=== PATIENT | male | born 1935 | race Caucasian/White ===

== ENCOUNTER 2021-03-04 08:36 | Inpatient (IN) | payer MEDICARE ==
[~2021-03-04] VITALS: Ht 172.7 cm; Wt 74.6 kg
[2021-03-04 08:43] VITALS: BP 160/86
[2021-03-04] MEDS ORDERED: CHILDREN'S ASPI81 M1 PO (08:56)
[2021-03-04] MEDS ORDERED: LIPITOR40 MG PO (08:56)
[2021-03-04] MEDS ORDERED: CALCIUM CARBON500 MG PO (08:57)
[2021-03-04] MEDS ORDERED: CEPHALEXIN250 MG PO (08:57)
[2021-03-04] MEDS ORDERED: B-125000 MC1 PO (08:58)
[2021-03-04] MEDS ORDERED: FUROSEMIDE 20 M20 MG PO (08:59)
[2021-03-04] MEDS ORDERED: NEURONTIN 300M300 M2 PO (08:59)
[2021-03-04] MEDS ORDERED: IMDUR 30 MG TAB30 M1 PO (09:00)
[2021-03-04] MEDS ORDERED: LORATIDINE 10 M10 M1 PO (09:00)
[2021-03-04] MEDS ORDERED: SUPER THERAVIT1 EACH PO (09:01)
[2021-03-04] MEDS ORDERED: NITROSTAT0.4 M1 (09:01)
[2021-03-04] MEDS ORDERED: KAPSPARGO SPRIN25 MG PO (09:01)
[2021-03-04] MEDS ORDERED: FLOMAX0.4 MG PO (09:02)
[2021-03-04] MEDS ORDERED: HYDROCODON-ACE1 EAC7 PO (09:02)
[2021-03-04] MEDS ORDERED: OMEPRAZOLE40 MG PO (09:02)
[2021-03-04] MEDS ORDERED: OXYBUTYNIN 5 MG5 M2 PO (09:02)
[2021-03-04] MEDS ORDERED: ATROVENT HFA14 GM INH (09:03)
[2021-03-04 09:20] LABS: ABSOLUTE BASOPHILS 0.1 thou/uL (0.0-0.2); ABSOLUTE EOSINOPHILS 0.1 thou/uL (0.0-0.7); ABSOLUTE LYMPHOCYTES 2.8 thou/uL (0.8-5.3); ABSOLUTE MONOCYTES 1.1 thou/uL (0.0-1.2); ABSOLUTE NEUTROPHILS 5.9 thou/uL (1.6-8.1); BASOPHILS 0.8 %; EOSINOPHILS 1.2 %; HEMATOCRIT 33.5 % (42.0-52.0); HEMOGLOBIN 11.1 gm/dL (14.0-18.0); LYMPHOCYTES 27.8 %; MCH 30.8 pg (26.0-34.0); MCHC 33.1 g/dL (28.0-37.0); MCV 92.9 fL (80.0-100.0); MPV 8.2 fl. (7.2-11.1); NUCLEATED RBCS 0 /100WBC; PLATELET COUNT* 289 thou/uL (150-400); POLYS 59.2 %; RBC 3.61 mil/uL (4.50-6.00); RDW-CV 14.9 % (10.5-14.5); WBC 9.9 thou/uL (4.0-11.0)
[2021-03-04 09:22] LABS: CALCIUM 9.7 mg/dL (8.5-10.1); CREATININE 2.2 mg/dL (0.6-1.3); POTASSIUM 3.9 mmol/L (3.5-5.1)
[2021-03-04 09:33] LABS: ALBUMIN 3.6 g/dL (3.4-5.0); DIRECT BILIRUBIN 0.2 mg/dL (<0.1-0.3); PHOSPHORUS* 2.6 mg/dL (2.5-4.9); TOTAL BILIRUBIN 0.8 mg/dL (<0.1-1.0); TOTAL PROTEIN 9.1 g/dL (6.4-8.2)
[2021-03-04 10:38] LABS: URINE BLOOD TRACE (Negative); URINE CLARITY CLEAR; URINE COLOR YELLOW; URINE GLUCOSE-RANDOM NEGATIVE (Negative); URINE KETONES NEGATIVE (Negative); URINE LEUKOCYTES NEGATIVE (Negative); URINE NITRITE NEGATIVE (Negative); URINE PROTEIN TRACE (Negative); URINE UROBILINOGEN 0.2 E.U./dl (0.2-1.0)
[2021-03-04 10:47] LABS: URINE BILIRUBIN 1+ (Negative)
[2021-03-04 10:51] LABS: ICTOTEST (BILI CONFIRMATORY) Negative (Negative)
[2021-03-04 17:00] VITALS: BP 149/84
[2021-03-04 18:00] VITALS: BP 149/84
[2021-03-04 19:45] VITALS: BP 118/72
[2021-03-05] VITALS (7 sets, daily range): BP systolic 107–132; BP diastolic 51–77
--- NOTE | 2021-03-05 04:22 | NUR ---
ASSUMED PT CARE AT APPROX. 1930. PT IS A/OX4. VSS. PT C/O PAIN IN BLLE D/T NEUROPATHY. PT REFUSED SCHEDULED GABAPENTIN D/T "IT CAUSES STOMACH UPSET." PT REQUESTED HYDROCODONE FOR PAIN. MEDICATION ADMINISTERED PRESCRIBED. PT REPORTED PARTIAL PAIN RELIEF. PT HAS DIVERTICULITIS AND CONSTIPATION. PT IS CONTINENT OF BOWEL AND BLADDER. PT RECEIVED MEDICATION ON THE DAY SHIFT TO HELP WITH CONSTIPATION. PT HAD 3 BM'S TONIGHT. PT USES CALL LIGHT TO NOTIFY STAFF BEFORE GETTING OUT OF BED. PT CALL LIGHT WITHIN REACH. HOURLY ROUNDS COMPLETE CHARTED. PT CURRENTLY RESTING IN BED. WILL CONT. TO MONITOR.
--- NOTE | 2021-03-05 07:15 | NUR ---
CHANGE OF SHIFT BEDSIDE REPORT GIVEN PATIENT SEEN AT BEDSIDE, IN BED RESTING ASSUMED PATIENT CARE
--- NOTE | 2021-03-05 09:32 | NUR ---
CM ASSESSMENT: PT A&O, INDEPENDENT WITH ADL'S, ACTIVE AND DRIVES. PT RESIDES AT HOME WITH SPOUSE. PT USES A CANE FOR MOBILITY. PT HAS 0 HX OF HH OR SNF. CM WILL REMAIN AVAILABLE TO ASSIST AND FOLLOW NEEDED.
--- NOTE | 2021-03-05 12:09 | EKG ---
[place] [address] ELECTROCARDIOGRAM REPORT Name: COOPER DURAN Room: [address] ADM IN M.R.#: [id number] Admission: 03/04/21 Attend Phys: Hernando Sharpe, Discharge: Date of : 39 Date of Service: 03/04/21 0846 Report #: [id number] THIS REPORT FOR: //name// [facility] ED Test Date: 2021-03-04 Test Time: 08:46:43 Pat Name: COOPER DURAN Department: Room: [facility] Gender: M Elevator Erector: FERNANDO : 1935 Requested By: Darrell Ron Order Number: [id number] MD: Martin Pena Measurements Intervals [place] Rate: 59 P: 42 MA: 182 QRS: -60 QRSD: 133 T: -26 QT: 454 QTc: 450 Interpretive Statements Sinus rhythm Nonspecific IVCD with LAD Nonspecific T abnormalities, inferior leads Baseline wander in lead(s) I,II,aVR No previous ECG available for comparison Electronically Signed On 03-05-2021 12:09:23 CDT by Martin Pena [email or web address] <ELECTRONICALLY SIGNED> By: Martin Pena MD, [facility] 03/05/21 1209 [id number] Martin Pena MD, [facility] /EPI
[2021-03-05 15:00] LABS: HEMATOCRIT 35.1 % (42.0-52.0); HEMOGLOBIN 11.4 gm/dL (14.0-18.0); MCH 30.5 pg (26.0-34.0); MCHC 32.6 g/dL (28.0-37.0); MCV 93.6 fL (80.0-100.0); MPV 8.2 fl. (7.2-11.1); RBC 3.75 mil/uL (4.50-6.00); WBC 10.3 thou/uL (4.0-11.0)
[2021-03-05 15:22] LABS: ALBUMIN 3.5 g/dL (3.4-5.0); CALCIUM 9.3 mg/dL (8.5-10.1); CREATININE 2.6 mg/dL (0.6-1.3); POTASSIUM 3.6 mmol/L (3.5-5.1); TOTAL BILIRUBIN 0.8 mg/dL (<0.1-1.0); TOTAL PROTEIN 8.7 g/dL (6.4-8.2)
[2021-03-06 04:35] VITALS: BP 111/64
--- NOTE | 2021-03-06 05:07 | NUR ---
ASSUMED PT CARE AT 1930. PT IS A/OX4. VSS. PT IS SR ON TELEMONITOR. PT HAS BEEN UP TO RR INTERMITTENTLY DURING THE NOC. PT USES CALL LIGHT. PT DENIES ABDOMINAL PAIN. PT REPORTED PAIN AND NEUROPATHY BLLE. MEDICATIONS ADMINISTERED PRESCRIBED. PT RESTED DURING THE NIGHT. HOURLY ROUNDS COMPLETE CHARTED. PT CURRENTLY ASLEEP IN BED. WILL CONT. TO MONITOR.
[2021-03-06 11:51] VITALS: BP 118/86
--- NOTE | 2021-03-06 11:53 | NUR ---
PLAN OF CARE: PHYSICIAN INFORMS THAT THE PT MAY BE READY TO D/C HOME TOMORROW. NO CM D/C PLANNING NEEDS ANTICIPATED. CM WILL REMAIN AVAILABLE TO ASSIST AND FOLLOW NEEDED.
[2021-03-06 16:25] VITALS: BP 110/70
[2021-03-07 04:09] VITALS: BP 119/60
[2021-03-07 04:19] LABS: HEMATOCRIT 30.9 % (42.0-52.0); HEMOGLOBIN 10.1 gm/dL (14.0-18.0); MCH 30.3 pg (26.0-34.0); MCHC 32.7 g/dL (28.0-37.0); MCV 92.7 fL (80.0-100.0); MPV 8.4 fl. (7.2-11.1); RBC 3.34 mil/uL (4.50-6.00); RDW-CV 15.5 % (10.5-14.5); WBC 12.2 thou/uL (4.0-11.0)
[2021-03-07 04:49] LABS: ALBUMIN 2.9 g/dL (3.4-5.0); CALCIUM 8.3 mg/dL (8.5-10.1); CREATININE 2.4 mg/dL (0.6-1.3); POTASSIUM 4.2 mmol/L (3.5-5.1); TOTAL BILIRUBIN 0.5 mg/dL (<0.1-1.0); TOTAL PROTEIN 7.8 g/dL (6.4-8.2)
--- NOTE | 2021-03-07 06:45 | NUR ---
NO ACUTE CHANGES THROUGHOUT SHIFT. ALL ROUNDINGS COMPLETED, ALL NEEDS MET. CALL LIGHT AND PERSONAL ITEMS IN REACH. BED LOCKED AND IN LOW POSITION. SEE CHARTING FOR DETAILS. PT REFUSING NS TO RUN AT THIS TIME.
[2021-03-07 12:00] VITALS: BP 132/82
[2021-03-07] MEDS ORDERED: FLAGYL500 M1 PO (12:20)
[2021-03-07] MEDS ORDERED: CIPRO500 M1 PO (12:20)
[2021-03-07 13:19] VITALS: BP 134/70
== END 2021-03-07 13:45 | disposition home or self-care (01) | DRG 391 ==
LOC: M.ERS 08:36 → M.2W 12:16 → M.TBA-ER 12:16 → M.2W 18:15
PROVIDERS: Emergency Medicine; Internal Medicine; ADMIT Internal Medicine; ATTEND Internal Medicine
DX: K57.32 Diverticulitis of large intestine without perforation or abscess without bleeding (principal); N17.0 Acute kidney failure with tubular necrosis; N18.4 Chronic kidney disease, stage 4 (severe); K59.00 Constipation, unspecified; G89.29 Other chronic pain; N40.0 Benign prostatic hyperplasia without lower urinary tract symptoms; I12.9 Hypertensive chronic kidney disease with stage 1 through stage 4 chronic kidney disease, or unspecified chronic kidney disease; M54.5 Low back pain; M18.4 Other bilateral secondary osteoarthritis of first carpometacarpal joints; Z20.822 Contact with and (suspected) exposure to COVID-19; Z79.82 Long term (current) use of aspirin; Z79.899 Other long term (current) drug therapy; Z88.8 Allergy status to other drugs, medicaments and biological substances